=== PATIENT | male | born 1975 | race African-American/Black ===

== ENCOUNTER 2020-08-01 05:21 | Emergency (ER) | payer OTHER ==
[2020-08-01 06:16] LABS: BASOPHIL 0.4 % (0-2); EOSINOPHIL 1.3 % (0-5); HCT 45.2 % (42.0-52.0); HGB 15.6 g/dl (13.2-18.0); LYMPHOCYTE 44.8 % (15-48); MCH 31.3 pg (25.0-31.0); MCHC 34.5 g/dL (32.0-36.0); MCV 90.8 fL (78.0-100.0); MONOCYTE 6.8 % (0-12); MPV 11.1 fL (6.0-9.5); NEUTROPHIL 46.6 % (41-80); NRBC 0; PLT 164 K/uL (150-400); RBC 4.98 M/uL (4.70-6.00); RDW 12.7 % (11.5-14.0); WBC 6.7 K/uL (4.0-10.5)
[2020-08-01 06:31] LABS: ALBUMIN 3.7 g/dL (3.4-5.0); BILIRUBIN - TOTAL 0.3 mg/dL (0.2-1.0); BUN/CREAT RATIO (CALC) 10.9 RATIO; CREATININE 0.92 mg/dL (0.67-1.17); GLOBULIN (CALCULATION) 3.4 g/dL; POTASSIUM 4.1 mmol/L (3.5-5.1); TOTAL PROTEIN 7.1 g/dL (6.4-8.2)
[2020-08-01] MEDS ORDERED: IBUPROFEN800 MG PO (07:01)
== END 2020-08-01 07:11 | disposition home or self-care (01) ==
LOC: FER 05:21
PROVIDERS: Emergency Medicine
DX: R10.9 Unspecified abdominal pain (principal); F17.290 Nicotine dependence, other tobacco product, uncomplicated
CPT/HCPCS: 36415; 71046; 80053; 82150; 83690; 84484; 85025; 93005